=== PATIENT | male | born 1980 | race African-American/Black ===

== ENCOUNTER 2019-06-29 08:09 | Emergency (ER) | payer BC, MEDICARE ==
[~2019-06-29] VITALS: Ht 188 cm; Wt 124.0 kg
[2019-06-29 08:09] VITALS: BP 212/122
[2019-06-29] MEDS: IV NORMAL SALINE 1,000ML 1,000 ML IV SCH (08:30)
[2019-06-29 08:40] LABS: BASO # 0.1 x10^3/uL (0.0-0.2); BASO % 0 % (0-3); EOS # 0.3 x10^3/uL (0.0-0.7); EOS % 2 % (0-3); HEMATOCRIT 34.2 % (39.0-53.0); HEMOGLOBIN 11.1 g/dL (13.0-17.5); LYMPH # 2.3 x10^3/uL (1.0-4.8); LYMPH % 15 % (24-48); MEAN CORPUSCULAR HEMOGLOBIN 27 pg (25-35); MEAN CORPUSCULAR HGB CONC 32 g/dL (31-37); MEAN CORPUSCULAR VOLUME 84 fL (79-100); MONO # 1.4 x10^3/uL (0.0-1.1); MONO % 9 % (0-9); NEUT # 11.9 x10^3uL (1.8-7.7); NEUT % 75 % (31-73); PLATELET COUNT 273 x10^3/uL (140-400); RED BLOOD COUNT 4.09 x10^6/uL (4.30-5.70); RED CELL DISTRIBUTION WIDTH 16.4 % (11.5-14.5)
[2019-06-29 08:41] LABS: CREATININE 16.8 mg/dL (0.7-1.3); GFR 3.2; POTASSIUM 4.3 mmol/L (3.5-5.1)
--- NOTE | 2019-06-29 08:46 | PHYS DOC ---
Adult General Chief Complaint Chief Complaint: CHEST PAIN HPI HPI 39-year-old male presents with chest pain. The patient has been having left shoulder pain for the last 2 days. He denies any injury or fall. He is on dialysis and the use that arm. He admits that he may have fallen asleep in a funny position during dialysis. He just assumed that we'll get better. He presents today because the pain has moved over into his chest. He calls it a tension across the left upper chest that is 8 out of 10. The pain sleep this morning around 3:30, but it was less intense. He woke up again at 7:30 with his current pain level. The patient is on dialysis because of kidney failure due to high blood pressure. He had some kind of heart problem, but after testing a few years ago he has had no heart problems. There were no interventions done at that time other than to control his blood pressure. Patient denies fever or chills. He has no other complaints at this time. Review of Systems Review of Systems Constitutional: Denies fever or chills [] Eyes: Denies change in visual acuity, redness, or eye pain [] HENT: Denies nasal congestion or sore throat [] Respiratory: Denies cough or shortness of breath [] Cardiovascular: No additional information not addressed in HPI [] GI: Denies abdominal pain, nausea, vomiting, bloody stools or diarrhea [] : Denies dysuria or hematuria [] Musculoskeletal: Left shoulder pain[] Integument: Evidence of dialysis fistula left arm [] Neurologic: Denies headache, focal weakness or sensory changes [] Endocrine: Denies polyuria or polydipsia [] All other systems were reviewed and found to be within normal limits, except as documented in this note. Allergies Allergies Allergies Coded Allergies Type Severity Reaction Last Updated Verified No Known Drug Allergies 06/29/19 No Physical Exam Physical Exam Constitutional: Well developed, well nourished, no acute distress, non-toxic appearance. [] HENT: Normocephalic, atraumatic, bilateral external ears normal, oropharynx moist, no oral exudates, nose normal. [] Eyes: PERRLA, EOMI, conjunctiva normal, no discharge. [] Neck: Normal range of motion, no tenderness, supple, no stridor. [] Cardiovascular:Heart rate regular rhythm, no murmur [] Lungs & Thorax: Bilateral breath sounds clear to auscultation [] Abdomen: Bowel sounds normal, soft, no tenderness, no masses, no pulsatile masses. [] Skin: Warm, dry, no erythema, no rash. [] Back: No tenderness, no CVA tenderness. [] Extremities: No tenderness, no cyanosis, no clubbing, ROM intact, no edema. [] Neurologic: Alert and oriented X 3, normal motor function, normal sensory function, no focal deficits noted. [] Psychologic: Affect normal, judgement normal, mood normal. [] EKG EKG Sinus rhythm, rate 90, normal axis, no ST elevations or depressions.[] Radiology/Procedures Radiology/Procedures [] Impressions: EXAM: PA and Lateral Views of the Chest DATE: 06/29/2019 8:30 AM INDICATION: Chest pain COMPARISON: No Prior FINDINGS: The heart is not enlarged. Mediastinal and hilar contours are stable. Linear and patchy opacities left lung base likely scarring/atelectasis. No lobar consolidation. Small left pleural effusion. No definite pneumothorax. IMPRESSION: 1. Linear and patchy opacities left lung base likely scarring/atelectasis. 2. No lobar consolidation. 3. Small left pleural effusion. Electronically signed by: Terrell Ybarra MD (06/29/2019 9:06 AM) [id number] DICTATED AND SIGNED BY: TERRELL YBARRA MD DATE: 06/29/19905 CC: PATRICK LORENZO DO ~ EXAM: 3 Views Left Shoulder DATE: 06/29/2019 8:38 AM INDICATION: Left shoulder pain COMPARISON: No Prior FINDINGS: There is no evidence for acute fracture or dislocation. AC joint is congruent. Trace AC joint degenerative change. Humeral head is not high riding. IMPRESSION: 1. No acute fracture or dislocation. Electronically signed by: Terrell Ybarra MD (06/29/2019 9:05 AM) [id number] DICTATED AND SIGNED BY: TERRELL YBARRA MD DATE: 06/29/19904 CC: PATRICK LORENZO DO ~ Course & Med Decision Making Course & Med Decision Making Pertinent Labs and Imaging studies reviewed. (See chart for details) The patient's chest x-ray is negative for pneumonia. His shoulder x-ray is negative for acute findings. His labs are remarkable for an elevated white count of 16, elevated BUN and creatinine. Previous blood counts for comparison. His k idney function is as expected for patient on dialysis. His troponin is negative. Not sure what's causing the patient discomfort, but it could be referred pain from his shoulder. I don't see signs of infection to explain the white count. His differential was basically normal. His heart scores 3. I believe the patient can be safely discharged at this time. [] Dragon Disclaimer Dragon Disclaimer This electronic medical record was generated, in whole or in part, using a voice recognition dictation system. The HEART Score for CP Pts HEART Score for Chest Pain: HEART Score for Chest Pain Response (Comments) Value History Moderately Suspicious 1 ECG Normal 0 Age < 45 0 Risk Factors >3 Risk Factors or Hx CAD 2 Troponin < Normal Limit 0 Total 3 Risk Factors: Risk Factors: DM, Current or recent (<one month) smoker, HTN, HLP, family history of CAD, obesity. Risk Scores: Score 0 - 3: 2.5% MACE over next 6 weeks - Discharge Home Score 4 - 6: 20.3% MACE over next 6 weeks - Admit for Clinical Observation Score 7 - 10: 72.7% MACE over next 6 weeks - Early Invasive Strategies Departure Departure: Impression: Primary Impression: Chest pain Additional Impression: Left shoulder pain Disposition: HOME, SELF-CARE Condition: STABLE Patient Instructions: Chest Pain (Nonspecific), [id number], Shoulder Pain, [id number] Problem Qualifiers Primary Impression: Chest pain Chest pain type: other chest pain Qualified Codes: R07.89 - Other chest pain Additional Impression: Left shoulder pain Chronicity: acute Qualified Codes: M25.512 - Pain in left shoulder PATRICK LORENZO DO Jun 29, 2019 08:46
[2019-06-29 08:47] LABS: ALBUMIN 3.7 g/dL (3.4-5.0); ALBUMIN/GLOBULIN RATIO 0.9 (1.0-1.7); TOTAL BILIRUBIN 0.5 mg/dL (0.2-1.0)
[2019-06-29] MEDS ORDERED: ASPIRIN 81 MG TAB.CHEW PO ONE (09:00)
--- NOTE | 2019-06-29 09:08 | RAD ---
EXAM: 3 Views Left Shoulder DATE: 06/29/2019 8:38 AM INDICATION: Left shoulder pain COMPARISON: No Prior FINDINGS: There is no evidence for acute fracture or dislocation. AC joint is congruent. Trace AC joint degenerative change. Humeral head is not high riding. IMPRESSION: 1. No acute fracture or dislocation. Electronically signed by: Terrell Ybarra MD (06/29/2019 9:05 AM) [id number]
--- NOTE | 2019-06-29 09:09 | RAD ---
EXAM: PA and Lateral Views of the Chest DATE: 06/29/2019 8:30 AM INDICATION: Chest pain COMPARISON: No Prior FINDINGS: The heart is not enlarged. Mediastinal and hilar contours are stable. Linear and patchy opacities left lung base likely scarring/atelectasis. No lobar consolidation. Small left pleural effusion. No definite pneumothorax. IMPRESSION: 1. Linear and patchy opacities left lung base likely scarring/atelectasis. 2. No lobar consolidation. 3. Small left pleural effusion. Electronically signed by: Terrell Ybarra MD (06/29/2019 9:06 AM) [facility]
[2019-06-29 09:26] LABS: % LYMPHS 25 % (24-48); % MONOS 6 % (0-10); % SEGS 69 % (35-66)
[2019-06-29 09:27] LABS: ANISOCYTOSIS SLIGHT; OVALOCYTES OCC; PLT ESTIMATE ADEQUATE (ADEQUATE); TEAR DROP CELLS OCC
[2019-06-29] MEDS ORDERED: HYDR-3165 PO (10:21)
--- NOTE | 2019-06-29 12:03 | EKG ---
[address] [address] Test Date: 2019-06-29 Test Time: 08:17:45 Pat Name: RENA WILSON Department: Room: Gender: M Sales Marketing Coordinator: : 1980 Requested By: PATRICK LORENZO Order Number: [id number] Reading MD: Measurements Intervals [place] Rate: 90 P: 62 TX: 176 QRS: 13 QRSD: 90 T: 7 QT: 352 QTc: 435 Interpretive Statements SINUS RHYTHM NO SPECIFIC ECG ABNORMALITIES RI6.01 No previous ECG available for comparison
== END 2019-06-29 10:28 | disposition home or self-care (01) ==
LOC: ER 08:09
DX: R07.89 Other chest pain (principal); M25.512 Pain in left shoulder
CPT/HCPCS: 36415; 71046; 73030; 80053; 84484; 85007; 85025; 93005; 99285; J7030